=== PATIENT | male | born 1955 | race African-American/Black ===

== ENCOUNTER 2018-04-06 03:13 | Emergency (ER) | payer MEDICAID ==
[~2018-04-06] VITALS: Ht 170.2 cm; Wt 85.0 kg
[2018-04-06] MEDS ORDERED: FOLIC ACID 1 MG, THIAMINE HCL 100 MG, MVI, ADULT NO.1 10 ML in DEXTROSE 5% WATER 1,000 ML IV ONE ×4 (04:00)
[2018-04-06 04:27] LABS: CHLORIDE 110 mEq/L (98-107)
[2018-04-06 04:28] LABS: HEMATOCRIT. 43.2 % (42.0-52.0); HEMOGLOBIN. 14.7 g/dL (14.0-18.0); MEAN CORPUSCULAR HEMOGLOBIN 29.7 pg (28.0-32.0); MEAN CORPUSCULAR VOLUME 87.3 fL (80.0-94.0); PLATELET 333 x1000/uL (130-400); RED BLOOD CELL COUNT 4.94 mill/uL (4.7-6.1)
[2018-04-06 04:36] LABS: CREATINE KINASE 528 IU/L (39-308)
[2018-04-06 06:13] VITALS: BP 112/68
[2018-04-06 06:27] LABS: PLATELET ESTIMATE NORMAL
== END 2018-04-06 06:25 | disposition home or self-care (01) ==
LOC: ER 03:13
DX: R53.1 Weakness (principal); M25.552 Pain in left hip; M25.562 Pain in left knee; F17.200 Nicotine dependence, unspecified, uncomplicated; F12.10 Cannabis abuse, uncomplicated; F14.10 Cocaine abuse, uncomplicated; E11.9 Type 2 diabetes mellitus without complications; I10 Essential (primary) hypertension
CPT/HCPCS: 36415; 70450; 71045; 72100; 80053; 82550; 85025; 85651; 93005; 96365; 99285; J3411; J3490; J7070; Z7610

== ENCOUNTER 2019-07-24 18:47 | Inpatient (IN) | payer MEDICARE, MEDICAID ==
[~2019-07-24] VITALS: Ht 170.2 cm; Wt 68.0 kg
[2019-07-24] MEDS ORDERED: ONDANSETRON HCL 4MG/2ML INJ IV STA (23:44)
[2019-07-24] MEDS ORDERED: MORPHINE SULFATE 4 MG/ML CPJ (NOT FOR IM USE) IV STA (23:44)
[2019-07-24] MEDS ORDERED: KETOROLAC 30MG/ML VIAL IV STA (23:44)
[2019-07-24] MEDS ORDERED: SODIUM CHLORIDE 0.9% 1,000 ML IV ONE (23:44)
[2019-07-24 23:56] LABS: BASOPHILS % 1.2 % (0.0-2.0); EOSINOPHILS % 1.3 % (0.0-5.0); HEMATOCRIT. 42.1 % (42.0-52.0); HEMOGLOBIN. 14.2 g/dL (14.0-18.0); LYMPHOCYTES % 37.8 % (20.0-50.0); MEAN CORPUSCULAR HEMOGLOBIN 30.4 pg (28.0-32.0); MEAN CORPUSCULAR VOLUME 89.9 fL (80.0-94.0); MEAN PLATELET VOLUME 7.3 fl (7.4-10.4); MONOCYTES % 5.8 % (2.0-8.0); NEUTROPHILS % 53.9 % (40.0-76.0); PLATELET 313 x1000/uL (130-400); RED BLOOD CELL COUNT 4.68 mill/uL (4.7-6.1); RED CELL DISTRIBUTION WIDTH 14.1 % (11.6-14.6)
[2019-07-24 23:59] LABS: INR 0.9; PROTHROMBIN TIME 9.4 sec (9.6-11.0)
[2019-07-25 00:10] LABS: CHLORIDE 105 mEq/L (98-107)
[2019-07-25 02:36] LABS: CLARITY URINE CLOUDY (CLEAR); COLOR URINE DARK YELLOW (YELLOW); KETONES URINE TRACE (NEGATIVE); LEUKOCYTE ESTERASE URINE TRACE (NEGATIVE); NITRITE URINE NEGATIVE (NEGATIVE); OCCULT BLOOD URINE NEGATIVE (NEGATIVE); PROTEIN URINE 2+ (NEGATIVE); SPECIFIC GRAVITY URINE 1.032 (1.005-1.030)
[2019-07-25] MEDS ORDERED: MORPHINE SULFATE 4 MG/ML CPJ (NOT FOR IM USE) IV ONE (03:30)
[2019-07-25] MEDS ORDERED: IPRATROPIUM/ALBUTEROL 0.5-3(2.5)MG/3ML NEB NEB PRN (07:00)
[2019-07-25] MEDS ORDERED: GUAIFENESIN 200MG/10ML SUGAR FREE UDC PO PRN (07:00)
[2019-07-25] MEDS ORDERED: CLONIDINE 0.1MG TABLET PO PRN (07:00)
[2019-07-25] MEDS ORDERED: MORPHINE SULFATE 2 MG/ML CPJ (NOT FOR IM USE) IV PRN (07:00)
[2019-07-25] MEDS ORDERED: NA PHOS,M-B/NA PHOS,DI-BA ENEMA 118ML PR PRN (07:00)
[2019-07-25] MEDS ORDERED: DEXTROSE 50% WATER 50ML SYRINGE IV PRN (07:00)
[2019-07-25] MEDS ORDERED: DIPHENHYDRAMINE 50MG/ML VIAL IV PRN (07:00)
[2019-07-25] MEDS ORDERED: MAGNESIUM/ALUMINUM HYDROXIDE/SIMETHICONE 30ML UDC PO PRN (07:00)
[2019-07-25] MEDS ORDERED: ACETAMINOPHEN 325MG TABLET PO PRN (07:00)
[2019-07-25] MEDS ORDERED: LORAZEPAM 2MG/ML CPJ IV PRN ×2 (07:00→10:30)
[2019-07-25] MEDS ORDERED: DOCUSATE SODIUM 100MG CAPSULE PO PRN (07:00)
[2019-07-25] MEDS ORDERED: ONDANSETRON HCL 4MG/2ML INJ IV PRN (07:00)
[2019-07-25] MEDS ORDERED: CEFTRIAXONE 1 G PREMIX 50 ML IV ONE (07:00)
[2019-07-25] MEDS ORDERED: ENOXAPARIN 40MG/0.4ML SYR SUBCUT NR (08:00)
[2019-07-25] MEDS: BLOOD SUGAR DIAGNOSTIC STRIP TEST SCH ×4 (08:13→21:00)
[2019-07-25] MEDS: INSULIN LISPRO 100 UNITS/ML SUBCUT SCH ×4 (08:13→21:00)
[2019-07-25 08:20] VITALS: BP 116/69
[2019-07-25 08:30] VITALS: BP 116/69
[2019-07-25] MEDS ORDERED: NICOTINE 14MG PATCH TD SCH (10:30)
[2019-07-25] MEDS ORDERED: HYDRALAZINE 20MG/ML VIAL IV PRN (10:30)
[2019-07-25] MEDS ORDERED: HYDROCODONE/ACETAMINOPHEN 10/325MG TABLET PO PRN (10:30)
[2019-07-25] MEDS ORDERED: METF-414 MT (11:11)
[2019-07-25] MEDS ORDERED: ASPI-1160 PO (11:11)
[2019-07-25] MEDS ORDERED: LISI2.5T47 MT (11:11)
[2019-07-25 12:00] VITALS: BP 137/75
[2019-07-25] MEDS ORDERED: IOHEXOL-300 100 ML BOTTLE ONE (12:15)
[2019-07-25 13:11] LABS: CANNABINOID URINE SCREEN PRESUMTIVE POSITIVE (NEGATIVE); METHADONE URINE SCREEN NEGATIVE (NEGATIVE); OPIATES URINE SCREEN PRESUMTIVE POSITIVE (NEGATIVE); PHENCYCLIDINE URINE SCREEN NEGATIVE (NEGATIVE)
[2019-07-25] MEDS: FOLIC ACID 1 MG, THIAMINE HCL 100 MG, MVI, ADULT NO.1 10 ML in DEXTROSE 5% WATER 1,000 ML IV SCH ×4 (13:11)
[2019-07-25 13:12] LABS: *AMPHETAMINES SCREEN URINE NEGATIVE (NEGATIVE); *BARBITURATES SCREEN URINE NEGATIVE (NEGATIVE); *BENZODIAZEPINES SCREEN URINE NEGATIVE (NEGATIVE); *COCAINE SCREEN URINE PRESUMTIVE POSITIVE (NEGATIVE)
[2019-07-25] MEDS: SODIUM CHLORIDE 0.9% INJ 3ML FLUSH IVF SCH (14:00)
[2019-07-25 16:00] VITALS: BP 113/68
[2019-07-25 20:00] VITALS: BP 104/59
[2019-07-26] VITALS: BP 111/64
[2019-07-26] MEDS: SODIUM CHLORIDE 0.9% INJ 3ML FLUSH IVF SCH ×2 (00:23→06:00)
[2019-07-26 04:00] VITALS: BP 112/63
[2019-07-26 06:18] LABS: BASOPHILS % 0.7 % (0.0-2.0); EOSINOPHILS % 0.8 % (0.0-5.0); HEMATOCRIT. 39.1 % (42.0-52.0); HEMOGLOBIN. 12.9 g/dL (14.0-18.0); LYMPHOCYTES % 34.6 % (20.0-50.0); MEAN CORPUSCULAR HEMOGLOBIN 29.7 pg (28.0-32.0); MEAN CORPUSCULAR VOLUME 89.7 fL (80.0-94.0); MEAN PLATELET VOLUME 7.7 fl (7.4-10.4); MONOCYTES % 10.8 % (2.0-8.0); NEUTROPHILS % 53.1 % (40.0-76.0); PLATELET 291 x1000/uL (130-400); RED BLOOD CELL COUNT 4.35 mill/uL (4.7-6.1); RED CELL DISTRIBUTION WIDTH 13.7 % (11.6-14.6)
[2019-07-26 06:47] LABS: CHLORIDE 107 mEq/L (98-107)
[2019-07-26] MEDS ORDERED: ENOXAPARIN 40MG/0.4ML SYR SUBCUT SCH (07:00)
[2019-07-26 07:02] LABS: LDL CHOLESTEROL 75 mg/dL (5-100)
[2019-07-26 07:04] LABS: HDL CHOLESTEROL 76 mg/dL (40-59)
[2019-07-26] MEDS: INSULIN LISPRO 100 UNITS/ML SUBCUT SCH ×2 (07:33→12:08)
[2019-07-26] MEDS: BLOOD SUGAR DIAGNOSTIC STRIP TEST SCH ×2 (07:33→12:08)
[2019-07-26 08:00] VITALS: BP 123/63
[2019-07-26 10:49] LABS: HEPATITIS B SURFACE ANTIGEN NEGATIVE
[2019-07-26] MEDS: FOLIC ACID 1 MG, THIAMINE HCL 100 MG, MVI, ADULT NO.1 10 ML in DEXTROSE 5% WATER 1,000 ML IV SCH ×4 (11:18)
[2019-07-26 12:00] VITALS: BP 139/69
[2019-07-26 12:15] VITALS: BP 123/63
[2019-07-28 17:06] LABS: ANTI-NUCLEAR ANTIBODIES DIRECT Negative (Negative)
[2019-07-29 09:06] LABS: HIV 1 ABS Positive (Negative); HIV 2 ABS Negative (Negative); HIV SCREEN 4G Reactive (Non Reactive); INTERPRETATION HIV-1 Positive (.)
== END 2019-07-26 14:20 | disposition home or self-care (01) | DRG 688 ==
LOC: ER 18:47 → 6EST 07-25 03:25 → EDBEDREQ 07-25 03:28 → EDBEDREQTM 07-25 03:28 → ENRESERV 07-25 07:37
PROVIDERS: ADMIT Internal Medicine; ATTEND Internal Medicine
DX: C64.2 Malignant neoplasm of left kidney, except renal pelvis (principal); E11.9 Type 2 diabetes mellitus without complications; F10.20 Alcohol dependence, uncomplicated; F14.90 Cocaine use, unspecified, uncomplicated; F17.210 Nicotine dependence, cigarettes, uncomplicated; I10 Essential (primary) hypertension; R80.9 Proteinuria, unspecified; K76.0 Fatty (change of) liver, not elsewhere classified; Z71.51 Drug abuse counseling and surveillance of drug abuser; Z79.899 Other long term (current) drug therapy; Z79.82 Long term (current) use of aspirin; Z21 Asymptomatic human immunodeficiency virus [HIV] infection status
CPT/HCPCS: 36415; 74176; 74177; 80053; 80061; 80305; 81003; 82570; 82962; 83036; 83735; 84156; 85025; 86038; 86701; 86702; 86803; 87340; 87389; 96374; 99285; J0696; J1650; J1885; J2270; J2405; J3411; J3490; J7030; J7070; Q9967

== ENCOUNTER 2021-06-25 13:40 | Emergency (ER) | payer OTHER, MEDICAID, MEDICARE ==
[~2021-06-25] VITALS: Ht 170.2 cm; Wt 64.0 kg
[~2021-06-25 13:40] MED LIST: ASPI-1160 PO; LISI2.5T47 MT; METF-414 MT
[2021-06-25 16:03] VITALS: BP 154/94
[2021-06-25] MEDS ORDERED: ACETAMINOPHEN 325MG TABLET PO ONE (16:45)
[2021-06-25] MEDS ORDERED: ACET-2708 MT (17:23)
== END 2021-06-25 17:50 | disposition home or self-care (01) ==
LOC: ER 13:40
DX: M79.675 Pain in left toe(s) (principal); R21 Rash and other nonspecific skin eruption; E11.9 Type 2 diabetes mellitus without complications; I10 Essential (primary) hypertension; F14.10 Cocaine abuse, uncomplicated; F12.10 Cannabis abuse, uncomplicated; Z79.899 Other long term (current) drug therapy
CPT/HCPCS: 73660; 99283